=== PATIENT | male | born 1960 | race Caucasian/White ===

== ENCOUNTER 2023-11-29 17:16 | Inpatient (IN) | payer OTHER ==
[~2023-11-29] VITALS: Ht 91.4 cm; Wt 51.3 kg
[2023-11-29] MEDS: VANCOMYCIN 1GM/DEXT 5% PREMIX 200 ML IV ONE (00:20)
[2023-11-29 17:29] VITALS: BP 102/60; PULSE 89; RESP 22; TEMP 97.8; O2SAT 99
[2023-11-29 19:34] LABS: ANION GAP 13.2 (8-16); CALCIUM 10.5 mg/dL (8.5-10.1); CARBON DIOXIDE 29.7 mmol/L (21-32); POTASSIUM 3.9 mmol/L (3.5-5.1)
[2023-11-29 19:43] LABS: LACTIC ACID 1.9 mmol/L (0.4-2.0)
[2023-11-29 19:56] LABS: BASOPHILS # (AUTO) 0.1 K/uL (0.00-0.22); BASOPHILS % (AUTO) 0.2 % (0.0-2.0); EOSINOPHILS % (AUTO) 0.1 % (0.0-4.0); HEMATOCRIT 43.3 % (36-52); HEMOGLOBIN 13.4 g/dL (12.0-18.0); LYMPHOCYTES # (AUTO) 0.7 K/uL (2.0-11.5); LYMPHOCYTES % (AUTO) 2.5 % (20.5-51.1); MEAN CORPUSCULAR HEMOGLOBIN 28 pg (27-31); MEAN CORPUSCULAR HGB CONC 31 g/dL (33-37); MEAN CORPUSCULAR VOLUME 91.6 fL (80-94); MONOCYTES # (AUTO) 1.4 K/uL (0.8-1.0); MONOCYTES % (AUTO) 4.9 % (1.7-9.3); NEUTROPHILS # (AUTO) 26.9 K/uL (1.8-7.7); NEUTROPHILS % (AUTO) 92.3 % (42.2-75.2); PLATELET COUNT (AUTO) 391 K/uL (140-450); RED BLOOD CELL COUNT(AUTO) 4.72 MIL/uL (4.20-6.10); RED CELL DISTRIBUTION WIDTH 18.5 % (11.6-13.7)
[2023-11-29 20:06] LABS: WHITE BLOOD COUNT (AUTO) 29.2 K/uL (4.8-10.8)
[2023-11-29] MEDS ORDERED: cefTRIAXone 1,000 MG VIAL ONE (20:43)
[2023-11-29] MEDS ORDERED: ALBUTEROL 0.083% 2.5 MG/3 ML NEBU INH PRN (21:20)
[2023-11-29] MEDS ORDERED: ACETAMINOPHEN 325 MG TAB PO PRN (21:20)
[2023-11-29] MEDS ORDERED: VANCOMYCIN PER PHARMACY MC PRN (21:25)
[2023-11-29] MEDS ORDERED: CLINDAMYCIN 600 MG/4 ML VIAL ONE (22:49)
[2023-11-29] MEDS: CLINDAMYCIN 600 MG/4 ML VIAL IV ONE (23:04)
[2023-11-29] MEDS: NACL 0.9% 500 ML IV ONE (23:06)
[2023-11-29] MEDS ORDERED: ATOR20TA PO (23:20)
[2023-11-29] MEDS ORDERED: GABA600T11 PO (23:20)
[2023-11-29] MEDS ORDERED: METO25TE2 PO (23:20)
[2023-11-29] MEDS ORDERED: PANT40EC PO (23:20)
[2023-11-29] MEDS ORDERED: LEVO0.1331 PO (23:20)
[2023-11-29] MEDS ORDERED: VANCOMYCIN 1,000 MG VIAL ONE (23:57)
[2023-11-30 00:47] VITALS: BP 159/29; PULSE 77; RESP 17; TEMP 97.6; O2SAT 98
[2023-11-30] MEDS: IPRATROPIUM 0.02% 0.5 MG/2.5 ML NEBU INH SCH (01:00)
[2023-11-30] MEDS: HYDROcodone/APAP 5/325 MG 1 TAB TAB PO PRN (02:37)
[2023-11-30 04:00] VITALS: BP 155/27; PULSE 91; RESP 18; TEMP 98.6; O2SAT 97
[2023-11-30 06:46] LABS: BASOPHILS # (AUTO) 0.1 K/uL (0.00-0.22); BASOPHILS % (AUTO) 0.3 % (0.0-2.0); EOSINOPHILS # (AUTO) 0.1 K/uL (0-0.4); EOSINOPHILS % (AUTO) 0.3 % (0.0-4.0); HEMATOCRIT 41.9 % (36-52); HEMOGLOBIN 13.3 g/dL (12.0-18.0); LYMPHOCYTES # (AUTO) 0.9 K/uL (2.0-11.5); LYMPHOCYTES % (AUTO) 3.3 % (20.5-51.1); MEAN CORPUSCULAR HEMOGLOBIN 29 pg (27-31); MEAN CORPUSCULAR HGB CONC 32 g/dL (33-37); MEAN CORPUSCULAR VOLUME 91.3 fL (80-94); MONOCYTES # (AUTO) 1.2 K/uL (0.8-1.0); MONOCYTES % (AUTO) 4.7 % (1.7-9.3); NEUTROPHILS % (AUTO) 91.4 % (42.2-75.2); PLATELET COUNT (AUTO) 402 K/uL (140-450); RED BLOOD CELL COUNT(AUTO) 4.59 MIL/uL (4.20-6.10); RED CELL DISTRIBUTION WIDTH 18.1 % (11.6-13.7)
[2023-11-30 07:07] LABS: WHITE BLOOD COUNT (AUTO) 26.2 K/uL (4.8-10.8)
[2023-11-30 07:40] LABS: ANION GAP 14.7 (8-16); CALCIUM 10.5 mg/dL (8.5-10.1); CARBON DIOXIDE 29.3 mmol/L (21-32); CREATININE 3.5 mg/dL (0.6-1.3)
[2023-11-30] MEDS: PIPERACILLIN/TAZOBACTAM 2.25 GM VIAL IV ONE (07:56)
[2023-11-30] MEDS: PIPERACILLIN/TAZOBACTAM 2.25 GM in DEXTROSE 5% 50 ML IV SCH (07:58)
[2023-11-30 08:00] VITALS: BP 161/29; PULSE 94; RESP 18; TEMP 96.9; O2SAT 98
[2023-11-30] MEDS ORDERED: NON-FORMULARY ITEM (Levothyroxine Sodium* (Synthroid*) 1 TAB) PO SCH (09:00)
[2023-11-30] MEDS: GABAPENTIN 300 MG CAP PO SCH (09:49)
[2023-11-30] MEDS: METOPROLOL SUCCINATE 50 MG TABER PO SCH (09:51)
[2023-11-30] MEDS: PANTOPRAZOLE 40 MG TABEC PO SCH (09:52)
[2023-11-30] MEDS: LEVOTHYROXINE 0.025 MG TAB ONE (10:08)
[2023-11-30] MEDS: LEVOTHYROXINE 0.112 MG TAB ONE (10:08)
[2023-11-30] MEDS: LEVOTHYROXINE 0.112 MG, LEVOTHYROXINE 0.025 MG PO SCH (10:22)
[2023-11-30] MEDS ORDERED: THERAHONEY GEL 42.5 GM TP PRN (11:45)
[2023-11-30] MEDS ORDERED: HYDRAGUARD CREAM TP PRN (11:45)
[2023-11-30] MEDS ORDERED: GAUZE TP PRN (11:45)
[2023-11-30 12:00] VITALS: BP 153/50; PULSE 94; RESP 18; TEMP 96.9; O2SAT 98
[2023-11-30] MEDS: THERAHONEY GEL 42.5 GM TP SCH (13:48)
[2023-11-30] MEDS: HYDRAGUARD CREAM TP SCH (13:49)
[2023-11-30] MEDS: GAUZE TP SCH (13:50)
[2023-11-30 16:00] VITALS: BP 118/20; PULSE 77; RESP 18; TEMP 98.1; O2SAT 93
[2023-11-30] MEDS ORDERED: DEXTROSE 50% 50 ML SYR IVP PRN (16:10)
[2023-11-30] MEDS: BLOOD GLUCOSE MONITORING 1 DEV DEV FS SCH (16:40)
[2023-11-30] MEDS: INSULIN LISPRO SLIDING SCALE 100 UNITS/ML VIAL SUBQ PRN (16:44)
[2023-11-30 20:00] VITALS: BP 96/50; PULSE 72; RESP 18; TEMP 98; O2SAT 96
[2023-11-30] MEDS: ATORVASTATIN 20 MG TAB PO SCH (21:03)
[2023-11-30] MEDS ORDERED: IPRATROPIUM 0.02% 0.5 MG/2.5 ML NEBU INH PRN (23:15)
[2023-12-01] VITALS: BP 96/50; PULSE 72; RESP 18; TEMP 98; O2SAT 96
[2023-12-01 04:00] VITALS: BP 140/62; PULSE 80; RESP 18; TEMP 97; O2SAT 98
[2023-12-01] MEDS: LEVOTHYROXINE 0.112 MG TAB ONE (06:10)
[2023-12-01] MEDS: LEVOTHYROXINE 0.025 MG TAB ONE (06:10)
[2023-12-01 06:55] LABS: BASOPHILS # (AUTO) 0.1 K/uL (0.00-0.22); BASOPHILS % (AUTO) 0.4 % (0.0-2.0); EOSINOPHILS # (AUTO) 0.1 K/uL (0-0.4); EOSINOPHILS % (AUTO) 0.4 % (0.0-4.0); HEMOGLOBIN 13.2 g/dL (12.0-18.0); LYMPHOCYTES # (AUTO) 1.1 K/uL (2.0-11.5); LYMPHOCYTES % (AUTO) 4.1 % (20.5-51.1); MEAN CORPUSCULAR HEMOGLOBIN 29 pg (27-31); MEAN CORPUSCULAR HGB CONC 32 g/dL (33-37); MEAN CORPUSCULAR VOLUME 92.6 fL (80-94); MONOCYTES # (AUTO) 1.5 K/uL (0.8-1.0); NEUTROPHILS # (AUTO) 22.8 K/uL (1.8-7.7); NEUTROPHILS % (AUTO) 89.1 % (42.2-75.2); PLATELET COUNT (AUTO) 380 K/uL (140-450); RED BLOOD CELL COUNT(AUTO) 4.53 MIL/uL (4.20-6.10); RED CELL DISTRIBUTION WIDTH 18.3 % (11.6-13.7)
[2023-12-01 07:43] LABS: WHITE BLOOD COUNT (AUTO) 25.6 K/uL (4.8-10.8)
[2023-12-01 07:54] LABS: CALCIUM 10.7 mg/dL (8.5-10.1); CARBON DIOXIDE 27.4 mmol/L (21-32); POTASSIUM 5.4 mmol/L (3.5-5.1)
[2023-12-01 07:56] LABS: CREATININE 4.7 mg/dL (0.6-1.3)
[2023-12-01 08:00] VITALS: BP 160/19; PULSE 82; RESP 18; TEMP 98.1; O2SAT 7; O2SAT 97
[2023-12-01] MEDS: VIT-B COMP/VIT-C/FOLIC ACID 1 TAB PO SCH (08:19)
[2023-12-01 12:00] VITALS: BP 160/19; PULSE 82; RESP 18; TEMP 98.1; O2SAT 97
[2023-12-01] MEDS ORDERED: VANCOMYCIN 1,000 MG in DEXTROSE 5% 250 ML IV SCH (15:00)
[2023-12-01 16:00] VITALS: BP 126/50; PULSE 90; RESP 18; TEMP 98.7; O2SAT 92
[2023-12-01 20:00] VITALS: BP_SYST 125; BP_SYST 38; BP_DIAS 19; BP_DIAS 38; PULSE 84; RESP 18; RESP 21; TEMP 97.5; O2SAT 93
[2023-12-02 04:00] VITALS: BP 156/86; PULSE 86; RESP 21; TEMP 97.7; O2SAT 93
[2023-12-02] MEDS: LEVOTHYROXINE 0.025 MG TAB ONE (06:22)
[2023-12-02] MEDS: LEVOTHYROXINE 0.112 MG TAB ONE (06:22)
[2023-12-02 06:48] LABS: BASOPHILS # (AUTO) 0.1 K/uL (0.00-0.22); BASOPHILS % (AUTO) 0.4 % (0.0-2.0); EOSINOPHILS # (AUTO) 0.1 K/uL (0-0.4); EOSINOPHILS % (AUTO) 0.2 % (0.0-4.0); HEMOGLOBIN 14.3 g/dL (12.0-18.0); LYMPHOCYTES # (AUTO) 1.4 K/uL (2.0-11.5); LYMPHOCYTES % (AUTO) 5.3 % (20.5-51.1); MEAN CORPUSCULAR HEMOGLOBIN 29 pg (27-31); MEAN CORPUSCULAR HGB CONC 32 g/dL (33-37); MEAN CORPUSCULAR VOLUME 91.2 fL (80-94); MONOCYTES # (AUTO) 1.5 K/uL (0.8-1.0); NEUTROPHILS # (AUTO) 22.9 K/uL (1.8-7.7); NEUTROPHILS % (AUTO) 88.1 % (42.2-75.2); PLATELET COUNT (AUTO) 346 K/uL (140-450); RED BLOOD CELL COUNT(AUTO) 4.94 MIL/uL (4.20-6.10); RED CELL DISTRIBUTION WIDTH 18.6 % (11.6-13.7)
[2023-12-02 07:01] LABS: WHITE BLOOD COUNT (AUTO) 25.9 K/uL (4.8-10.8)
[2023-12-02 07:21] LABS: ANION GAP 21.6 (8-16); CALCIUM 10.1 mg/dL (8.5-10.1); CARBON DIOXIDE 18.7 mmol/L (21-32); CREATININE 3.4 mg/dL (0.6-1.3); POTASSIUM 4.3 mmol/L (3.5-5.1)
[2023-12-02 08:00] VITALS: BP 128/56; PULSE 101; RESP 18; TEMP 97.2; O2SAT 94
[2023-12-02] MEDS ORDERED: VANCOMYCIN 1,000 MG in DEXTROSE 5% 250 ML IV SCH (08:30)
[2023-12-02] MEDS ORDERED: CODE BLUE PARTICIPANT 1 EA MISC MC ONE (11:34)
[2023-12-02] MEDS ORDERED: EPINEPHrine PFS 0.1 MG/ML SYR IVP ONE (11:34)
[2023-12-02] MEDS ORDERED: CALCIUM CHLORIDE 10% 100 MG/ML SYR IVP ONE (11:34)
[2023-12-02] MEDS ORDERED: SODIUM BICARBONATE 8.4% PFS 50 MEQ/50 ML SYR IVP ONE (11:34)
== END 2023-12-02 12:13 | DRG 871 ==
LOC: EDSEX 17:16 → MED 17:16 → MTU 21:22
PROVIDERS: ADMIT Student in an Organized Health Care Education/Training Program; ATTEND Student in an Organized Health Care Education/Training Program
PROC: 5A1D70Z Performance of Urinary Filtration, Intermittent, Less than 6 Hours Per Day (ICD-10-PCS; 2023-11-29)
PROC: 5A12012 Performance of Cardiac Output, Single, Manual (ICD-10-PCS; principal; 2023-12-02)
DX: A41.9 Sepsis, unspecified organism (principal); N18.6 End stage renal disease; R65.21 Severe sepsis with septic shock; E11.52 Type 2 diabetes mellitus with diabetic peripheral angiopathy with gangrene; I50.22 Chronic systolic (congestive) heart failure; I13.2 Hypertensive heart and chronic kidney disease with heart failure and with stage 5 chronic kidney disease, or end stage renal disease; E03.9 Hypothyroidism, unspecified; E87.5 Hyperkalemia; E83.52 Hypercalcemia; E83.39 Other disorders of phosphorus metabolism; D63.8 Anemia in other chronic diseases classified elsewhere; E11.40 Type 2 diabetes mellitus with diabetic neuropathy, unspecified; K21.9 Gastro-esophageal reflux disease without esophagitis; E78.00 Pure hypercholesterolemia, unspecified; E11.22 Type 2 diabetes mellitus with diabetic chronic kidney disease; Z99.2 Dependence on renal dialysis; Z89.612 Acquired absence of left leg above knee; Z89.611 Acquired absence of right leg above knee; Z89.512 Acquired absence of left leg below knee; Z89.511 Acquired absence of right leg below knee; Z79.899 Other long term (current) drug therapy; Z91.148 Patient's other noncompliance with medication regimen for other reason; I46.9 Cardiac arrest, cause unspecified
CPT/HCPCS: 36415; 73130; 80048; 80202; 82948; 83605; 84100; 85025; 87040; 87081; 90935; 93005; 96361; 96365; 96366; 99285; J0171; J0696; J1644; J1815; J2543; J3370; J3490; J7060; Q0092